=== PATIENT | male | born 1925 | race Caucasian/White ===

== ENCOUNTER 2016-07-05 21:04 | Observation (INO) | payer MEDICARE ==
--- NOTE | ~2016-07-05 | DS ---
Discharge Summary [id number] [place]. [address] NAME: PHILLIP DAWSON : [birth year] STATUS : DIS Hiren PAT#: [id number] AGE: 89 ADM/REG DATE : 07/05/16 MR#: [id number] REPORT SERV DATE: 07/07/16 DICTATED BY: JR. KOVACS WILLIAM JOHN DATE: 07/06/16 REPORT STATUS : Draft TRANSCRIBED BY: MODBuster DATE: 07/06/16 ADMISSION DATE: 07/05/2016 DISCHARGE DATE: 07/06/2016 DISCHARGE DIAGNOSES: Include: 1. Acute bronchitis, viral versus bacterial. 2. Azotemia. 3. Systemic inflammatory response syndrome. 4. Hypertension. 5. Chronic obstructive pulmonary disease. OPERATIONS, PROCEDURES, AND TREATMENTS: Include chest x-ray done 07/05/2016, which showed stable cardiomegaly with prior granulomatous disease. There were chronic left costophrenic changes. No other changes. DISCHARGE MEDICATIONS: Include: 1. Aspirin 325 mg orally daily. 2. Coreg 25 mg orally twice a day. 3. Plavix 75 mg orally daily. 4. Aricept 5 mg orally daily. 5. Doxycycline 100 mg orally twice a day, which is a chronic medicine. 6. Multivitamin tablet orally daily. 7. Tylenol as needed. 8. Crestor 40 mg daily. 9. Fluticasone nasal spray. 10.Multivitamin tablet orally daily. 11.Azithromycin 250 mg orally daily for four days. 12.Albuterol high-flow aerosol two puffs every four hours as needed. HOSPITAL COURSE: The patient was an 89-year-old male, who presented to the emergency room with complaint of flu-like symptoms. The patient had no chest pain. Did have nausea and vomiting. Reported fever, chills, and cough. Chest x-ray was done and showed no infiltrate. Please see the dictated history and physical by Dr. Moise for complete details of the admission history, physical, and presenting data. The patient is admitted to the hospital for systemic inflammatory response syndrome with bronchitis. The patient's white blood count was normal. He was placed empirically on Rocephin and azithromycin. His symptoms dramatically improved overnight. By hospital day #2, the patient denied nausea, vomiting, fevers, chills, chest pain, cough, or shortness of breath. He will be discharged home to complete a five-day course of azithromycin, also with albuterol high-flow aerosol to use as needed for shortness of breath. The patient will follow up with Dr. Pizarro in two weeks. DISCHARGE DIET: Regular. ACTIVITY: As tolerated. Discharge Summary [address] [place]. [address] NAME: PHILLIP DAWSON : [birth year] STATUS : DIS Hiren PAT#: [id number] AGE: 89 ADM/REG DATE : 07/05/16 MR#: [id number] REPORT SERV DATE: 07/07/16 DICTATED BY: JR. KOVACS WILLIAM JOHN DATE: 07/06/16 REPORT STATUS : Draft TRANSCRIBED BY: LALO DATE: 07/06/16 For discharge exam and laboratory, please see daily progress note. WJF/LALO Phillip Kovacs Jr, MD / [id number] CC: Phillip Kovacs Jr, MD Mark Heinsohn, M.D.
--- NOTE | ~2016-07-05 | HP ---
History And Physical [address] [place]. [address] NAME: PHILLIP DAWSON : [birth year] STATUS : ADM Hiren PAT#: [id number] AGE: 89 ADM/REG DATE : 07/05/16 MR#: [id number] REPORT SERV DATE: 07/06/16 DICTATED BY: MARCOS SCHWARTZ DATE: 07/06/16 REPORT STATUS : Draft TRANSCRIBED BY: MODL DATE: 07/06/16 DATE OF ADMISSION: 07/05/2016 CHIEF COMPLAINT: Flu-like symptoms. HISTORY OF PRESENT ILLNESS: The patient is an 89-year-old male with past medical history of pneumonia, AFib, peripheral vascular disease, dilated cardiomyopathy, right AKA and left multiple toe digit amputations who presents after having flu-like symptoms for last two days that has been constant, moderate in severity. No chest pain or radiation but does have nausea, vomiting, fever that was reported in the emergency room. Occasional chills and cough. No wheezing or palpitations. Symptoms are worsened with deep breathing, relieved only by rest. Symptoms are slightly better after breathing treatments given in the emergency room, but not currently resolved. REVIEW OF SYSTEMS: CONSTITUTIONAL: Noted for fever and chills, up to 101.2. EYES: No visual pain or changes. ENT: No sore throat but does have congestion. NEURO: No headache or confusion. SKIN: No rashes or bruising. RESPIRATORY: Does have cough with shortness of breath. CV: No chest pain or palpitations. GI: Does have nausea, vomiting. : No dysuria or hematuria. MUSCULOSKELETAL: Mild myalgias but no arthralgias. Difficulty using prosthetics. ENDO: Does have occasional fatigue but no polyuria. HEME: No bleeding or bruising. IMMUNOLOGIC: No rhinorrhea. PSYCH: No anxiety or confusion. PAST MEDICAL HISTORY: Peripheral vascular disease with infected ulcers, AFib, dilated cardiomyopathy, GERD, hyperlipidemia, prior skin cancer excision, DJD, osteoarthritis. 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 FAMILY HISTORY: Cancer, coronary artery disease. SOCIAL HISTORY: Nonsmoker as he has quit over 40 years ago. No alcohol or illicits. ALLERGIES: AMBIEN. HOME MEDICATIONS: Tylenol, aspirin, Dulcolax, Coreg, Plavix, Tylenol PM p.r.n., Aricept, chronic doxycycline, Flonase, Centrum, Crestor, Breathe Right strips, and iron supplements. PHYSICAL EXAMINATION: History And Physical [address] [place]. [address] NAME: PHILLIP DAWSON : [birth year] STATUS : ADM Hiren PAT#: [id number] AGE: 89 ADM/REG DATE : 07/05/16 MR#: [id number] REPORT SERV DATE: 07/06/16 DICTATED BY: MARCOS SCHWARTZ DATE: 07/06/16 REPORT STATUS : Draft TRANSCRIBED BY: LALO DATE: 07/06/16 VITAL SIGNS: Patient's blood pressure is 180/83, temperature 101.2, pulse 90, respirations 16, O2 sats 95%. GENERAL: No acute distress. Calm, pleasant. HEAD: Normocephalic, atraumatic. EYES: No scleral icterus. EOMI. ENT: Does have mild posterior erythema. RESPIRATORY: Bilateral rhonchi with polyphonic upper and lower lung hussein. Equal chest expansion. CV: Regular rate. No rubs or gallops. GI: Soft, nontender, nondistended. Bowel sounds positive. : Deferred. MUSCULOSKELETAL: Right AKA. Left partial toe amputations, now clean. SKIN: Warm and dry. LYMPH: No cervical or supraclavicular lymphadenopathy. HEME: No bleeding or bruising. NEURO: Alert and oriented. PSYCH: Appropriate mood and affect. Pleasant. Flu screen negative. LABORATORY DATA: CBC: WBC count 6.6, H and H 11.7 and 35.8, platelets 163. CMP: Sodium 139, potassium 3.9, chloride 103, bicarb 24, BUN and creatinine 25 and 0.82, glucose 127, T- bilirubin 1.0. AST and ALT 48 and 56, alk phos 86. ASSESSMENT: 1. Possible viral bronchitis versus bacterial component. 2. Azotemia with volume depletion. 3. Systemic inflammatory response syndrome. 4. Hypertension. 5. Chronic obstructive pulmonary disease history. PLAN: 1. For viral bronchitis versus bacterial component, volume depletion initially, flu negative, Rocephin and azithromycin in the emergency room. Improved fever and tachycardia with fluids and IV antibiotics given in emergency room. Check sputum. Recheck chest x-ray in a.m. 2. Azotemia, volume depletion. IV fluids. The patient has had positive nausea and vomiting and decreased p.o. intake. 3. Systemic inflammatory response syndrome. The patient initially had fever and tachycardia, symptoms have improved greatly after initiation of antibiotics and IV fluids in the emergency room. We will continue to monitor on telemetry. 4. Hypertension. Continue home medications. 5. COPD. Does have tight lung hussein. O2, DuoNebs, steroids. All questions answered with the patient at bedside. DDN/MODL History And Physical [address] [address] NAME: PHILLIP DAWSON : [birth year] STATUS : ADM Hiren PAT#: [id number] AGE: 89 ADM/REG DATE : 07/05/16 MR#: [id number] REPORT SERV DATE: 07/06/16 DICTATED BY: MARCOS SCHWARTZ DATE: 07/06/16 REPORT STATUS : Draft TRANSCRIBED BY: MODBuster DATE: 07/06/16 Marcos Schwartz MD / [id number] CC: Phillip Kovacs Jr, MD
[2016-07-05 17:04] LABS: INFLUENZA A SCREEN NEGATIVE (NEGATIVE); INFLUENZA B SCREEN NEGATIVE (NEGATIVE)
[2016-07-05 20:32] LABS: BASOPHILS 0.5 %; BASOPHILS ABSOLUTE 0.03 10/3/uL (0.0-0.16); EOSINOPHILS 4.1 %; EOSINOPHILS ABSOLUTE 0.27 10/3/uL (0.0-0.53); ER CBC TAT 0 Hrs 05 Mins; HEMATOCRIT 35.8 % (40.0-51.0); HEMOGLOBIN 11.7 g/dL (13.6-17.8); IMMATURE GRANULOCYTES 0.2 %; IMMATURE GRANULOCYTES ABSOLUTE 0.01 10/3/uL (0.0-0.11); LYMPHOCYTES 15.7 %; LYMPHOCYTES ABSOLUTE 1.04 10/3/uL (0.67-4.30); MEAN CORPUS HGB CONC 32.7 g/dL (32.0-36.0); MEAN CORPUSCULAR HEMOGLOB 30.9 pg (26.0-34.0); MEAN PLATELET VOLUME 11.3 fL (9.2-13.0); MONOCYTES 13.7 %; MONOCYTES ABSOLUTE 0.91 10/3/uL (0.21-1.20); NEUTROPHILS 65.8 %; NEUTROPHILS ABSOLUTE 4.36 10/3/uL (2.02-8.40); PLATELET COUNT 163 10/3/uL (150-400); WHITE BLOOD CELLS 6.6 10/3/uL (4.5-10.5)
[2016-07-05 20:35] LABS: MANUAL DIFF NO %; MEAN CORPUSCULAR VOLUME 94.5 fL (80-100); RED CELL COUNT 3.79 10/6/uL (4.7-6.1)
[2016-07-05 20:46] LABS: A/G RATIO 0.7 (0.7-1.9); ALBUMIN 3.3 G/DL (3.5-5.0); CHLORIDE, SERUM 103 MMOL/L (96-112); CO2 (CARBON DIOXIDE) 24 MMOL/L (24-34); CREATININE 0.82 MG/DL (0.70-1.30); GFR AFRICAN AMERICAN 91 ML/MIN (>=60); GFR NON AFRICAN AMERICAN 78 ML/MIN (>=60); GLOBULIN 4.5 G/DL (2.5-4.1); SGOT(AST) 48 U/L (5-40); SGPT(ALT) 56 U/L (5-65); SODIUM, SERUM 139 MMOL/L (135-148); TOTAL PROTEIN 7.8 G/DL (6.0-8.5)
[2016-07-05 20:47] LABS: ALKALINE PHOSPHATASE 86 U/L (45-117); BUN (BLOOD UREA NITROGEN) 25 MG/DL (6-23); GLUCOSE, SERUM 127 MG/DL (60-99); POTASSIUM, SERUM 3.9 MMOL/L (3.5-5.3)
[~2016-07-05 21:04] MED LIST: ACET500CAP PO; AFRIN15 NAS; ALEVE220 MG PO; ASA5GR PO; ASAB PO; BEN25 PO; C25 PO; C5 PO; CARDCD120 PO; CARDCD180 PO; CEFAZ1 IV; CENTRUM PO; COREG25 PO; CRESTOR20 MG PO; CRESTOR40 MG PO; DILT-XR180 MG PO; ELIQUIS 2.5 MG2.5 MG PO; EZFE 200200 MG PO; FISH OIL1200 MG PO; FISH-EPA1000 MG PO; GLUCCHONDR PO; K500 PO; LORTAB 5 PO; MONODOX100 MG PO; MULTIPLE VIT PO; NASACORT NAS; NASACORTAQ NAS; NASONEX NAS; NEXIUM20 M1 PO; NORCO1 TA1 PO; PCET PO; PEP10 PO; PEP20 PO; PLAVIX PO; PRAVACHOL40 MG PO; PRILOSEC OTC20 MG PO; RYTHMOL150 MG PO; SPIRO25 PO; TEARS PLUS OPH; TYLENOL PM PO
[2016-07-05] MEDS ORDERED: 8 HOUR650 MG PO (21:55)
[2016-07-05] MEDS ORDERED: TYLENOL PM PO (21:55)
[2016-07-05] MEDS ORDERED: ASA5GR PO (21:56)
[2016-07-05] MEDS ORDERED: CRESTOR40 MG PO (21:56)
[2016-07-05] MEDS ORDERED: PLAVIX PO (21:56)
[2016-07-05] MEDS ORDERED: ARICEPT5 PO (21:56)
[2016-07-05] MEDS ORDERED: MONODOX100 MG PO (21:57)
[2016-07-05] MEDS ORDERED: COREG25 PO (21:57)
[2016-07-05] MEDS ORDERED: BIST PO (21:59)
[2016-07-05] MEDS ORDERED: [UNRECOGNIZED DRUG - OTHER] NAS (21:59)
[2016-07-05] MEDS ORDERED: CENTRUM PO (22:00)
[2016-07-05] MEDS ORDERED: FLONASE NAS (22:00)
[2016-07-05] MEDS ORDERED: IRON SUPPLEMENT PO (22:01)
[2016-07-06 01:02] LABS: BASOPHILS 0.3 %; BASOPHILS ABSOLUTE 0.02 10/3/uL (0.0-0.16); EOSINOPHILS ABSOLUTE 0.06 10/3/uL (0.0-0.53); HEMOGLOBIN 10.3 g/dL (13.6-17.8); IMMATURE GRANULOCYTES 0.2 %; IMMATURE GRANULOCYTES ABSOLUTE 0.01 10/3/uL (0.0-0.11); LYMPHOCYTES 35.3 %; MEAN CORPUS HGB CONC 32.9 g/dL (32.0-36.0); MEAN CORPUSCULAR HEMOGLOB 30.9 pg (26.0-34.0); MEAN PLATELET VOLUME 11.1 fL (9.2-13.0); MONOCYTES 19.7 %; MONOCYTES ABSOLUTE 1.23 10/3/uL (0.21-1.20); NEUTROPHILS 43.5 %; NEUTROPHILS ABSOLUTE 2.72 10/3/uL (2.02-8.40); PLATELET COUNT 137 10/3/uL (150-400); RBC DISTRIBUTION WIDTH 16.9 % (12.0-16.0); RED CELL COUNT 3.33 10/6/uL (4.7-6.1); WHITE BLOOD CELLS 6.2 10/3/uL (4.5-10.5)
[2016-07-06 01:04] LABS: HEMATOCRIT 31.3 % (40.0-51.0); MANUAL DIFF NO %
[2016-07-06 01:18] LABS: A/G RATIO 0.7 (0.7-1.9); ALBUMIN 2.7 G/DL (3.5-5.0); ALKALINE PHOSPHATASE 72 U/L (45-117); BUN (BLOOD UREA NITROGEN) 22 MG/DL (6-23); CALCIUM, SERUM 7.9 MG/DL (8.5-10.4); CHLORIDE, SERUM 106 MMOL/L (96-112); CO2 (CARBON DIOXIDE) 25 MMOL/L (24-34); CREATININE 0.79 MG/DL (0.70-1.30); GFR AFRICAN AMERICAN 92 ML/MIN (>=60); GFR NON AFRICAN AMERICAN 80 ML/MIN (>=60); GLUCOSE, SERUM 102 MG/DL (60-99); PHOSPHORUS, SERUM 3.3 MG/DL (2.5-4.5); POTASSIUM, SERUM 3.8 MMOL/L (3.5-5.3); SGOT(AST) 37 U/L (5-40); SGPT(ALT) 43 U/L (5-65); SODIUM, SERUM 141 MMOL/L (135-148); TOTAL BILIRUBIN 0.6 MG/DL (0-1.2); TOTAL PROTEIN 6.7 G/DL (6.0-8.5)
[2016-07-06 02:56] LABS: PROCALCITONIN 0.64 ng/mL (<0.5)
[2016-07-06 08:18] LABS: BASOPHILS 0.2 %; BASOPHILS ABSOLUTE 0.01 10/3/uL (0.0-0.16); EOSINOPHILS 0 %; HEMATOCRIT 32.2 % (40.0-51.0); HEMOGLOBIN 10.8 g/dL (13.6-17.8); IMMATURE GRANULOCYTES 0.5 %; IMMATURE GRANULOCYTES ABSOLUTE 0.02 10/3/uL (0.0-0.11); LYMPHOCYTES 24.6 %; LYMPHOCYTES ABSOLUTE 1.03 10/3/uL (0.67-4.30); MANUAL DIFF NO %; MEAN CORPUS HGB CONC 33.5 g/dL (32.0-36.0); MEAN CORPUSCULAR HEMOGLOB 30.8 pg (26.0-34.0); MEAN CORPUSCULAR VOLUME 91.7 fL (80-100); MEAN PLATELET VOLUME 10.5 fL (9.2-13.0); MONOCYTES 2.9 %; MONOCYTES ABSOLUTE 0.12 10/3/uL (0.21-1.20); NEUTROPHILS 71.8 %; PLATELET COUNT 127 10/3/uL (150-400); RED CELL COUNT 3.51 10/6/uL (4.7-6.1); WHITE BLOOD CELLS 4.2 10/3/uL (4.5-10.5)
[2016-07-06 08:34] LABS: BUN (BLOOD UREA NITROGEN) 22 MG/DL (6-23); CHLORIDE, SERUM 108 MMOL/L (96-112); CO2 (CARBON DIOXIDE) 24 MMOL/L (24-34); CREATININE 0.81 MG/DL (0.70-1.30); GFR AFRICAN AMERICAN 91 ML/MIN (>=60); GFR NON AFRICAN AMERICAN 79 ML/MIN (>=60); POTASSIUM, SERUM 3.7 MMOL/L (3.5-5.3); SODIUM, SERUM 141 MMOL/L (135-148)
[2016-07-06 08:35] LABS: GLUCOSE, SERUM 160 MG/DL (60-99)
[2016-07-06] MEDS ORDERED: VENTOLIN HFA INH (13:29)
[2016-07-06] MEDS ORDERED: ZITH250 PO (13:29)
== END 2016-07-06 14:21 | disposition home or self-care (01) ==
LOC: ER 21:04 → CDU1 22:05 → CDU2 22:15
PROVIDERS: Emergency Medicine; Internal Medicine
DX: J20.9 Acute bronchitis, unspecified (principal); J44.0 Chronic obstructive pulmonary disease with (acute) lower respiratory infection; R79.89 Other specified abnormal findings of blood chemistry; I10 Essential (primary) hypertension; I48.91 Unspecified atrial fibrillation; I42.0 Dilated cardiomyopathy; K21.9 Gastro-esophageal reflux disease without esophagitis; E78.5 Hyperlipidemia, unspecified; M19.90 Unspecified osteoarthritis, unspecified site; E78.00 Pure hypercholesterolemia, unspecified; Z79.82 Long term (current) use of aspirin; Z79.02 Long term (current) use of antithrombotics/antiplatelets; Z79.2 Long term (current) use of antibiotics; Z79.899 Other long term (current) drug therapy; Z98.890 Other specified postprocedural states; Z87.891 Personal history of nicotine dependence; Z88.8 Allergy status to other drugs, medicaments and biological substances; Z96.651 Presence of right artificial knee joint
CPT/HCPCS: 71020; 80048; 80053; 83735; 84100; 84145; 84443; 85025; 87040; 87804; 94640; 96372; 96374; 96375; 96376; 99285; A9270-GY; G0378; J0456; J2405; J2920